=== PATIENT | male | born 1950 | race Caucasian/White ===

== ENCOUNTER 2020-04-11 16:13 | Emergency (ER) | payer OTHER, SELFPAY ==
[2020-04-11] VITALS (27 sets, daily range): BP systolic 92–138; BP diastolic 58–97; PULSE 58–126; RESP 8–40; TEMP 36.9; O2SAT 93–99
--- NOTE | ~2020-04-11 | XR_ITS ---
EXAMINATION: XR chest 1V portable DATE: 04/11/2020 17:44 INDICATION: Tachycardia. Atrial fibrillation. TECHNIQUE: frontal view of the chest was obtained. COMPARISON: Chest radiograph dated 02/16/[address] dated 02/17/2018 FINDINGS: The lungs remain clear with no focal airspace opacities, pulmonary edema, pleural effusion or pneumot horax. Cardiomegaly. Median sternotomy wires and mediastinal surgical clips are seen, likely from robert or coronary artery bypass grafting. IMPRESSION: 1. Cardiomegaly. No acute cardiopulmonary disease. Reviewed, dictated and finalized at location A.
--- NOTE | 2020-04-11 17:30 | ECG_ITS ---
Measurements Intervals [place] Rate: 106 P: PA: 0 QRS: -8 QRSD: 170 T: 171 QT: 379 QTc: 503 Interpretive Statements ATRIAL FIBRILLATION WITH RAPID VENTRICULAR RESPONSE VENTRICULAR PREMATURE COMPLEXES LEFT BUNDLE BRANCH BLOCK ABNORMAL ECG Electronically Signed On 04-11-2020 17:33:07 CDT by Watson Mccullough D.O.
--- NOTE | 2020-04-11 17:33 | ED.ARRPALP ---
HPI - Arrhythmia/Palpitations General Chief Complaint: Arrhythmia/Palpitations Stated Complaint: rapid heart rate Time Seen by Provider: 04/11/20 16:53 Source: patient History of Present Illness HPI narrative: Patient is 69 years old white male, obese, history of atrial fibrillation on Coumadin presents with palpitation for the last 2 weeks after eating barbecue and beer. Patient denying any chest pain or shortness of breath. Patient has a bag full of medicine, does not know what he takes for the A. fib. Patient is scheduled for possible pacemaker placement April 22 by ID Related Data Home Medications Medication Instructions Recorded Confirmed Aspir-81 81 mg PO DAILY 04/11/20 04/11/20 allopurinol 300 mg PO DAILY 04/11/20 04/11/20 atorvastatin 40 mg PO DAILY 04/11/20 04/11/20 cholecalciferol (vitamin D3) 25 mcg PO DAILY 04/11/20 04/11/20 colchicine 0.3 mg PO DAILY 04/11/20 04/11/20 ferrous sulfate 325 mg PO DAILY 04/11/20 04/11/20 furosemide 40 mg PO DAILY 04/11/20 04/11/20 gabapentin 100 mg PO TID 04/11/20 04/11/20 lisinopril 2.5 mg PO DAILY 04/11/20 04/11/20 metformin mg PO BID 04/11/20 metoprolol succinate 75 mg PO DAILY 04/11/20 04/11/20 spironolactone 25 mg PO DAILY 04/11/20 04/11/20 warfarin See Rx Instructions .ROUTE .COMPLEX 04/11/20 04/11/20 Allergies Allergy/AdvReac Type Severity Reaction Status Date / Time Penicillins Allergy Unknown Rash Verified 04/11/20 16:19 Review of Systems Review of Systems: Narrative: CONSTITUTIONAL: Denies fever, chills, or sweats. EYES: Denies visual changes, redness, or discharge. ENT: Denies rhinorrhea, congestion, sore throat, or otalgia. CARDIOVASCULAR: Palpitation RESPIRATORY: Denies cough or dyspnea. GASTROINTESTINAL: Denies abdominal pain, nausea, vomiting, or diarrhea. GENITOURINARY: Denies dysuria or hematuria. SKIN: Denies rash or itching. MUSCULOSKELETAL: Denies back pain, joint pain, or myalgia. NEUROLOGIC: Denies headache, numbness, or weakness. PSYCHIATRIC: Denies anxiety or depression. PMFSH Social History Social History Gender identity (if verbalized by the patient): Male Exam Narrative: Exam Narrative: General appearance: Well-developed, well-nourished Skin: Normal color Head: Normocephalic, nontraumatic Eyes: Clear conjunctiva ENT: Oropharynx normal, ears normal, nose normal Neck: Supple, nontender Chest and respiratory: Airway patent, no respiratory distress, no accessory muscle use Heart: Irregular irregularity, tachycardia Abdomen: Soft, nontender, no organomegaly, quiet bowel sounds Vascular: Normal peripheral pulses, normal capillary refill. Musculoskeletal: Normal range of motion, nontender back Neurologic: Alert and oriented ?3, AUDIO PRODUCTION INSTRUCTOR is normal as tested, no gross motor deficit , Course Course Emergency Course: Stable Reevaluation(s) Reevaluation #1: Heart rate is 83 bpm at this time. Patient denying any symptoms, declined to be hospitalized because of elevated troponin and told me that he is going to follow-up with his prison librarian tomorrow. Patient on Lopressor 75 mg once a day. My plan to give him a prescription of Lopressor 25 mg to be taken as needed for palpitation. Patient will sign AGAINST MEDICAL ADVICE. Date: 04/11/20 Time: 18:34 Vital Signs Vital signs: Vital Signs Temperature 36.9 C 04/11/20 16:19 Pulse Rate 116 H 04/11/20 16:19 Respiratory Rate 18 04/11/20 16:19 Blood Pressure 137/82 04/11/20 16:19 Pulse Oximetry 98 04/11/20 16:19 Temperature 36.9 C 04/11/20 16:19 Pulse Rate 90 04/11/20 16:45 Respiratory Rate 10 L 04/11/20 16:45 Blood Pressure 131/89 04/11/20 16:32 Puls
[2020-04-11 17:46] LABS: Basophils Absolute Auto 0.1 K/mm3 (0.0-0.1); Basophils Percent Auto 0.7 % (0.2-1.2); Eosinophils Absolute Auto 0.3 K/mm3 (0-0.3); Eosinophils Percent Auto 3.1 % (0-4.4); Hematocrit 40.2 % (42.0-52.0); Hemoglobin 13.3 g/dL (14.0-18.0); Immature Granulocyte Absolute 0.04 K/mm3 (0.00-0.031); Immature Granulocyte Percent A 0.5 % (0-0.5); Lymphocytes Absolute Auto 2.33 K/mm3 (0.9-3.2); Mean Corpuscular HGB Conc 33.1 g/dl (32-36); Mean Corpuscular Volume 96.9 fl (80-100); Mean Platelet Volume 11.3 fl (7.4-10.4); Neutrophils Absolute Auto 4.6 K/mm3 (1.3-6.7); Neutrophils Percent Auto 55.7 % (45.5-73.1); Platelet Count Result 267 k/mm3 (150-375); Red Blood Count 4.15 M/mm3 (4.6-6.20); Red Cell Distribution Width 14.3 % (11.5-14.5); White Blood Count 8.3 K/mm3 (4.5-10.0)
[2020-04-11 17:52] LABS: INR 1.6
[2020-04-11 17:55] LABS: Add Urine Microscopic? NO; Appearance Urine Clear (Clear); Bilirubin Urine Negative (Negative); Blood Urine Negative (Negative); Color Urine Straw (Yellow); Glucose Urine UA Negative (Negative); Ketones Urine Negative (Negative); Leukocyte Esterase Ur Negative LEU/UL (Negative); Nitrate Urine Negative (Negative); Protein Urine Negative (Negative); Urobilinogen Urine Negative mg/dL (<2.0)
[2020-04-11 17:55] LABS: Alanine Aminotransferase 38 U/L (4-50); Albumin Level 4.5 g/dL (3.5-5.1); Alkaline Phosphatase 89 U/L (38-126); Aspartate Amino Transferase 43 U/L (17-59); Bilirubin,Total 0.7 mg/dL (0.2-1.3); Blood Urea Nitrogen 30 mg/dL (9-20); Carbon Dioxide 21 mmol/L (22-30); Chloride 102 mmol/L (98-107); Estimated CRCL calculation 69 ml/min; Estimated Glomerular Filt Rate 55; Glucose 142 mg/dL (75-110); Potassium 4.2 mmol/L (3.4-5.0); Sodium 136 mmol/L (137-145)
--- NOTE | 2020-04-12 08:58 | PCCCNOTE ---
04/12/2020 Spoke with Shilpa at [facility] to notify that pt had ED visit on 04/11/2020. Call ref ID# [id number]. BM
== END 2020-04-11 19:10 | disposition left against medical advice (07) ==
PROVIDERS: Emergency Provider Emergency Medicine
DX: R00.2 Palpitations (principal); I48.91 Unspecified atrial fibrillation; Z79.01 Long term (current) use of anticoagulants; E66.9 Obesity, unspecified; Z68.41 Body mass index [BMI] 40.0-44.9, adult; Z79.84 Long term (current) use of oral hypoglycemic drugs; I49.3 Ventricular premature depolarization; I44.7 Left bundle-branch block, unspecified
CPT/HCPCS: 36415; 71045; 80053; 81003; 84443; 84484; 85025; 85610; 93005; 96374; 99284

== ENCOUNTER 2021-05-22 11:08 | Emergency (ER) | payer OTHER, SELFPAY ==
[2021-05-22 12:14] LABS: Alanine Aminotransferase 40 U/L (16-63); Albumin Level 3.9 g/dL (3.4-5.0); Alkaline Phosphatase 116 U/L (46-116); Anion Gap 24 mmol/L (8-16); Aspartate Amino Transferase 30 U/L (15-37); Bilirubin,Total 0.8 mg/dL (0.00-1.00); Blood Urea Nitrogen 32 mg/dL (7-18); Carbon Dioxide 13 mmol/L (21-32); Chloride 100 mmol/L (98-108); Glucose 371 mg/dL (70-99); Osmolality Calculated 305 mOsm/kg (285-295); Potassium 4.2 mmol/L (3.5-5.1); Sodium 137 mmol/L (136-145); Total Protein 8.9 g/dL (6.4-8.2)
[2021-05-22 12:16] LABS: Basophils Absolute Auto 0.08 K/mm3 (0.00-0.10); Basophils Percent Auto 0.6 % (0.0-1.0); Eosinophils Percent Auto 3.2 % (1.0-6.0); Hematocrit 48.2 % (37.0-46.0); Hemoglobin 14.2 g/dL (12.4-15.3); Immature Granulocyte Absolute 0.08 K/mm3 (0.00-0.00); Immature Granulocyte Percent A 0.6 % (0.0-0.0); Lymphocytes Absolute Auto 4.41 K/mm3 (1.10-4.50); Lymphocytes Percent Auto 35.5 % (18.0-42.0); Mean Corpuscular HGB Conc 29.5 g/dL (32.0-36.0); Mean Corpuscular Hemoglobin 32.4 pg (27.0-31.0); Mean Platelet Volume 10.5 fl (8.7-11.0); Monocytes Absolute Auto 1.21 K/mm3 (0.10-0.90); Monocytes Percent Auto 9.7 % (2.0-11.0); Neutrophils Absolute Auto 6.2 K/mm3 (1.7-7.2); Neutrophils Percent Auto 50.4 % (50.0-70.0); Platelet Count Result 316 K/mm3 (150-420); Red Blood Count 4.38 M/mm3 (4.70-6.10); Red Cell Distribution Width 13.6 % (11.6-14.4); White Blood Count 12.4 K/mm3 (4.8-10.8)
[2021-05-22 12:18] LABS: D Dimer 0.63 mg/L (0.19-0.50)
[2021-05-22 12:19] LABS: Estimated Glomerular Filt Rate 31
[2021-05-22 12:22] LABS: Troponin I 144.7 ng/L (0.00-60.4)
--- NOTE | 2021-05-22 12:47 | ED.CHESTPAIN ---
HPI - Chest Pain General Chief Complaint: Cardiac Arrest/CPR Stated Complaint: Ambulance Time Seen by Provider: 05/22/21 11:08 Source: EMS ( Patient arrived 1103) and RN notes reviewed Mode of arrival: EMS Limitations: altered mental status History of Present Illness HPI narrative: patient complained of chest pain that started approximately 9:00 a.m. the chest pain persisted and he called EMS. History is obtained from EMS. EMS states that they initially found an acute STEMI on his EKG and were on their way to [facility]. In transit he went into ventricular tachycardia and so they diverted to our facility. They said he became tachycardic, dyspneic, diaphoretic. On arrival patient is very short of breath on 15 L non-rebreather. He cannot speak in full sentences. He appears in acute respiratory distress. We moved him over to the bed and he became unresponsive. MD complaint: chest pain Pertinent past history: coronary artery disease, prior ID and CABG Onset (ago): hour(s) (2) Timing of current episode: episodic Prior episodes: Yes Onset: during rest Pain location: substernal Pain radiation: none Severity: moderate Quality: tightness Relieving factors: nothing Exacerbating factors: nothing Risk Factors Coronary artery disease risk factors: diabetes and hypertension Pulmonary embolism risk factors: morbid obesity Related Data Home Medications Medication Instructions Recorded Confirmed Aspir-81 81 mg PO DAILY 04/11/20 05/22/21 allopurinol 300 mg PO DAILY 04/11/20 05/22/21 atorvastatin 40 mg PO DAILY 04/11/20 05/22/21 cholecalciferol (vitamin D3) 25 mcg PO DAILY 04/11/20 05/22/21 colchicine 0.3 mg PO DAILY 04/11/20 05/22/21 ferrous sulfate 325 mg PO DAILY 04/11/20 05/22/21 furosemide 40 mg PO DAILY 04/11/20 05/22/21 gabapentin 100 mg PO TID 04/11/20 05/22/21 lisinopril 2.5 mg PO DAILY 04/11/20 05/22/21 metformin 500 mg PO BID 04/11/20 05/22/21 metoprolol succinate 12.5 mg PO DAILY 04/11/20 05/22/21 spironolactone 25 mg PO DAILY 04/11/20 05/22/21 warfarin See Rx Instructions .ROUTE .COMPLEX 04/11/20 05/22/21 Allergies Allergy/AdvReac Type Severity Reaction Status Date / Time Penicillins Allergy Unknown Rash Verified 04/12/20 13:45 Review of Systems Review of Systems: ROS unobtainable: Yes unobtainable due to medical condition [facility] Past Medical History Medical History Coronary artery disease Hypertension Type 2 diabetes mellitus Surgical History Surgical History History of coronary artery stent placement Hx of CABG Presence of combination internal cardiac defibrillator (ICD) and pacemaker Social History Social History Smoking status: Never smoker Gender identity (if verbalized by the patient): Male Exam Const: General: diaphoretic Nutritional Appearance: obese morbidly obese HENMT: Head: normal to inspection Ears: external ears normal Face and sinus: normal facial exam Eyes: Conjunctivae: conjunctivae normal Pupils: Equal, round and reactive pupils present Chest: Chest palpation & inspection: Pacemaker present Resp: Effort & Inspection: labored, respiratory distress, tachypneic and uses accessory muscles Auscultation: crackles bilateral and diffuse Cardio: Rate: tachycardic Rhythm: abnormal rhythm regularly irregular GI: GI Palp: Yes Soft to palpation and No Tenderness to palpation present (GI) Auscultation: absent bowel sounds Back/Spine/Pelvis: Cervical Spine: cervical ROM normal Thoracic/Lumbar Spine: thoraco-lumbar ROM normal Skin: General skin exam: mottling, pallor and other ( diaphoretic) Neuro: General: confusion and Unable to assess gait Cognition (Neuro): abnormal cognition Extrem: General: cyanosis ( generalized) Psych: Appearance: grossly normal and other Thought content: Yes other ( unable to assess) Co
--- NOTE | 2021-05-22 13:24 | PC.NURSE ---
see acls code sheet paper chart
== END 2021-05-22 11:30 | disposition expired ==
PROVIDERS: Emergency Provider Emergency Medicine
DX: I46.9 Cardiac arrest, cause unspecified (principal)
CPT/HCPCS: 31500; 36415; 80053; 84484; 85025; 85380; 92950; 99285; J0171